=== PATIENT | male | born 1975 | race American Indian/Alaskan Native ===

== ENCOUNTER 2017-10-19 13:04 | Emergency (ER) | payer SELFPAY ==
--- NOTE | 2017-10-19 18:21 | Emergency Department Report ---
HPI - General Chief Complaint: High BP Time Seen by Provider: 10/19/17 18:01 - HPI HPI: Room 24 The patient is a 42-year-old male presented with a chief complaint of hypertension, chest tightness. The patient states she has a history of hypertension was prescribed lisinopril/hydrochlorothiazide. The patient states he only takes blood pressure medication sparingly as he is trying to make it last. 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 Coworkers told him that he nodded off for the patient believes he may have passed out because he never falls asleep at work. The patient also admits to having tightness across his chest for several months which he has attributed to a "muscle pull." The patient does not recall any specific injury lesion to his chest tightness but states every time he has had chest pain in the past he has been diagnosed with a "pulled muscle." The patient states he's never had a stress test or cardiac catheterization. Location: [See above] Duration: [See above] Quality: Tightness Severity: [See above] Modifying factors: [see above] Context: [see above] Mode of transportation: [not driving] ED Past Medical Hx - Past Medical History Hx Hypertension: Yes Hx Diabetes: Yes - Surgical History Additional Surgical History: eyes - Family History Family history: no significant - Social History Smoking Status: Never Smoker Substance Use Type: None (denies illicit drug use), Alcohol (occasional) ED Review of Systems ROS: Stated complaint: HYPERTENSIVE Other details as noted in HPI Respiratory: denies: shortness of breath Cardiovascular: chest pain Gastrointestinal: denies: nausea, vomiting Neurological: paresthesias. denies: headache Physical Exam - Physical Exam Vital Signs: Vital Signs 10/19/17 13:57 Temperature 98.9 F Pulse Rate 103 H Respiratory 18 Rate Blood Pressure 179/120 O2 Sat by Pulse 98 Oximetry Physical Exam: GENERAL: The patient is well-developed well-nourished male lying on stretcher not appearing to be in acute distress. [] HEENT: Normocephalic. Atraumatic. Extraocular motions are intact. Patient has moist mucous membranes. Strabismus NECK: Supple. Trachea midline CHEST/LUNGS: Clear to auscultation. There is no respiratory distress noted. HEART/CARDIOVASCULAR: Regular. There is no tachycardia. There is no gallop rub or murmur. ABDOMEN: Abdomen is soft, nontender. Patient has normal bowel sounds. There is no abdominal distention. SKIN: There is no rash. There is no edema. There is no diaphoresis. NEURO: The patient is awake, alert, and oriented. The patient is cooperative. The patient has no focal neurologic deficits. The patient has normal speech. Cranial nerves II through XII grossly intact, no drift MUSCULOSKELETAL: There is no evidence of acute injury. ED Course Vital Signs 10/19/17 13:57 Temperature 98.9 F Pulse Rate 103 H Respiratory 18 Rate Blood Pressure 179/120 O2 Sat by Pulse 98 Oximetry ED Medical Decision Making - Lab Data Result diagrams: 10/19/17 18:52 10/19/17 18:45 Laboratory Tests 10/19/17 10/19/17 18:45 18:52 WBC 4.9 RBC 4.92 Hgb 14.3 Hct 42.4 MCV 86 MCH 29 MCHC 34 RDW 13.7 Plt Count 232 Lymph % (Auto) 34.3 Perkins % (Auto) 5.0 Eos % (Auto) 0.8 Baso % (Auto) 0.7 Lymph # 1.7 Perkins # 0.2 Eos # 0.0 Baso # 0.0 Seg Neutrophils % 59.2 Seg Neutrophils # 2.9 Sodium 136 L Potassium 3.7 Chloride 96.4 L Carbon Dioxide 24 Anion Gap 19 BUN 13 Creatinine 1.3 Estimated GFR > 60 BUN/Creatinine Ratio 10 Glucose 350 H Calcium 9.2 Total Creatine Kinase 149 CK-MB (CK-2) 1.3 CK-MB (CK-2) Rel Index 0.8 Troponin T < 0.010 - EKG Data -: EKG Interpreted by Me EKG shows normal: sinus rhythm Rate: normal - EKG Data When compared to previous EKG there are: no significant change Interpretation: other (compared to previous EKG performed at urgent care facility dated 10/15/2017. No significant change) - Radiology Data Radiology results: report reviewed (chest x-ray, CT head), image reviewed ( chest x-ray, CT head) interpreted by me: Chest x-ray-no focal infiltrate, no pneumothorax [facility] [address] [place] [address] XRay Report Signed Patient: WEST LINK MR#: [id number] : 1975 Acct:[id number] Age/Sex: 42 / M ADM Date: 10/19/17 Loc: ED Attending Dr: Ordering Physician: TAMELA REYEZ MD Date of Service: 10/19/17 Procedure(s): XR chest 1V ap Accession Number(s): [id number] cc: TAMELA REYEZ MD Fluoro Time In Minutes: FINAL REPORT EXAM: XR CHEST 1V AP HISTORY: chest pain COMPARISON: None available. FINDINGS: Frontal view(s) of the chest obtained. Cardiac silhouette within normal limits. No gross consolidation or effusion. No pneumothorax. IMPRESSION: No grossly acute findings. Transcribed By: LMA Dictated By: FAITH MCALLISTER MD Electronically Authenticated By: FAITH MCALLISTER MD Signed Date/Time: 10/19/171848 DD/ 48 TD/TT: 10/19/171848 [place] [address] Cat Scan Report Signed Patient: WEST LINK MR#: [id number] : 1975 Acct:[id number] Age/Sex: 42 / M ADM Date: 10/19/17 Loc: ED Attending Dr: Ordering Physician: TAMELA REYEZ MD Date of Service: 10/19/17 Procedure(s): CT head/brain wo con Accession Number(s): [id number] cc: TAMELA REYEZ MD FINAL REPORT EXAM: CT HEAD/BRAIN WO CON HISTORY: hypertension, possible syncopal episode COMPARISON: None available. TECHNIQUE: Axial images obtained skull base through vertex. FINDINGS: No acute intracranial hemorrhage, midline shift or pathologic extra axial fluid collection. Ventricles and cisterns are normal in size and configuration for the patient's age. Simpson-white differentiation preserved. 5 millimeter benign perivascular space inferior right basal ganglia. Calvarium grossly intact. Ocular globes are grossly unremarkable. Mild mucosal thickening the visualized maxillary sinuses. Tiny amount of fluid within the left mastoid air cells. IMPRESSION: No grossly acute intracranial abnormality. Transcribed By: LMA Dictated By: FAITH MCALLISTER MD Electronically Authenticated By: FAITH MCALLISTER MD Signed Date/Time: 10/19/171835 DD/ 35 TD/TT: 10/19/171835 - Differential Diagnosis hypertensive urgency, ACS, ICH Critical care attestation.: If time is entered above; I have spent that time in minutes in the direct care of this critically ill patient, excluding procedure time. ED Disposition Clinical Impression: Uncontrolled hypertension, Chest tightness Disposition: OP ADMIT IP TO THIS HOSP Is pt being admited?: Yes Does the pt Need Aspirin: Yes Condition: Stable Instructions: Hypertension (ED) Referrals: PRIMARY CARE, [Primary Care Provider] - 3-5 Days Time of Disposition: 19:41 (hospitalist notified (Dr Yeboah))
[2017-10-19] MEDS ORDERED: CATAPRES ONE (18:27)
[2017-10-19] MEDS ORDERED: CATAPRES PO ONE (18:27)
--- NOTE | 2017-10-19 18:42 | Cat Scan Report ---
FINAL REPORT EXAM: CT HEAD/BRAIN WO CON HISTORY: hypertension, possible syncopal episode COMPARISON: None available. TECHNIQUE: Axial images obtained skull base through vertex. FINDINGS: No acute intracranial hemorrhage, midline shift or pathologic extra axial fluid collection. Ventricles and cisterns are normal in size and configuration for the patient's age. Simpson-white differentiation preserved. 5 millimeter benign perivascular space inferior right basal ganglia. Calvarium grossly intact. Ocular globes are grossly unremarkable. Mild mucosal thickening the visualized maxillary sinuses. Tiny amount of fluid within the left mastoid air cells. IMPRESSION: No grossly acute intracranial abnormality.
--- NOTE | 2017-10-19 18:53 | XRay Report ---
FINAL REPORT EXAM: XR CHEST 1V AP HISTORY: chest pain COMPARISON: None available. FINDINGS: Frontal view(s) of the chest obtained. Cardiac silhouette within normal limits. No gross consolidation or effusion. No pneumothorax. IMPRESSION: No grossly acute findings.
[2017-10-19 19:02] LABS: Basophils % (Auto) 0.7 % (0.0-1.8); Eosinophils % (Auto) 0.8 % (0.0-4.3); Hematocrit 42.4 % (35.5-45.6); Hemoglobin 14.3 gm/dl (11.8-15.2); Lymphocytes # (Auto) 1.7 K/mm3 (1.2-5.4); Lymphocytes % (Auto) 34.3 % (13.4-35.0); Mean Corpuscular HGB Conc 34 % (32-34); Mean Corpuscular Hemoglobin 29 pg (28-32); Mean Corpuscular Volume 86 fl (84-94); Monocytes # (Auto) 0.2 K/mm3 (0.0-0.8); Platelet Count 232 K/mm3 (140-440); Red Blood Count 4.92 M/mm3 (3.65-5.03); Red Cell Distribution Width 13.7 % (13.2-15.2)
[2017-10-19 19:37] LABS: Creatine Kinase MB 1.3 ng/mL (0.0-4.0)
[2017-10-19 19:39] LABS: BUN/Creatinine Ratio 10; Blood Urea Nitrogen 13 mg/dL (9-20); Calcium 9.2 mg/dL (8.4-10.2); Hemolysis Index 11
[2017-10-19] MEDS ORDERED: ASPIRIN PO ONE (19:41)
--- NOTE | 2017-10-19 19:50 | History and Physical Report ---
History of Present Illness Chief complaint: I ran out of my medicine History of present illness: 42 YO Male with HTN, DM, presents to ED for evaluation. Pt states that "My blood pressure is High". Pt states that he ran out of his medication, and is unable to afford his medication due to financial reasons. Pt seen and evaluated in ED and found to have elevated blood pressure and elevated serum glucose. Pt treated with supportive care with normalization of serum glucose and blood pressure. Pt medically optimized and back to usual state of health. Pt discharged home and instructed to f/u pc 5 days with blood pressure/blood glucose log. Past History Past Medical History: diabetes, hypertension Past Surgical History: Other (eye surgery) Social history: single. denies: smoking, alcohol abuse, prescription drug abuse Family history: diabetes, hypertension Medications and Allergies Allergies Allergy/AdvReac Type Severity Reaction Status Date / Time No Known Allergies Allergy Unverified 10/19/17 13:57 Home Medications Medication Instructions Recorded Confirmed Last Taken Type Insulin NPH/Regular [Novolin 70/30] 12 unit SQ QDDIAB #1 vial 10/19/17 Unknown Rx Lisinopril [Prinivil] 10 mg PO DAILY #30 tablet 10/19/17 Unknown Rx Syring W-Ndl,Disp,Insul,0.5 ml 1 each MC BID #1 box 10/19/17 Unknown Rx [Ultra Comfort] amLODIPine [Norvasc] 10 mg PO DAILY #30 tab 10/19/17 Unknown Rx Review of Systems Constitutional: no weight loss, no weight gain, no fever, no chills, no sweats Ears, nose, mouth and throat: no ear pain, no ear discharge, no tinnitis, no decreased hearing, no nose pain, no nasal congestion, no nasal discharge, no sinus pressure Cardiovascular: no chest pain, no orthopnea, no palpitations, no rapid/ irregular heart beat, no edema, no syncope, no lightheadedness, no shortness of breath Respiratory: no cough, no cough with sputum, no excessive sputum, no hemoptysis Gastrointestinal: no abdominal pain, no nausea, no vomiting, no diarrhea, no constipation, no change in bowel habits Genitourinary Male: no dysuria, no hematuria, no flank pain, no discharge, no urinary frequency, no urinary hesitancy, no nocturia, no incontinence, no erectile dysfunction Rectal: no pain, no incontinence, no bleeding Musculoskeletal: no neck stiffness, no neck pain, no shooting arm pain, no arm numbness/tingling, no shooting leg pain, no morning stiffness, no muscle weakness, no myalgias Integumentary: no rash, no pruritis, no redness, no sores, no wounds, no bullae , no lesions, no acne, no dryness, no color changes Neurological: no head injury, no transient paralysis, no paralysis, no weakness , no parathesias, no numbness, no vertigo, no headaches, no migraines, no convulsions, no aphasia Psychiatric: no anxiety, no memory loss, no change in sleep habits, no change in appetite, no change in libido, no suicidal ideation, no disorientation, no paranoia, no depression, no hopelessness Endocrine: no cold intolerance, no heat intolerance, no polyphagia, no excessive thirst, no polydipsia, no polyuria, no nocturia, no excessive sweating , no flushing, no increase in ring/shoe/hat size, no proptosis, no thyroid mass Hematologic/Lymphatic: no easy bruising, no easy bleeding, no lymphadenopathy, no lymphedema Allergic/Immunologic: no urticaria, no allergic rhinitis, no wheezing, no persistent infections, no anaphylaxis, no angioedema Exam - Constitutional Vitals: Temp Pulse Resp BP Pulse Ox 98.9 F 86 16 176/126 97 10/19/17 13:57 10/19/17 18:15 10/19/17 17:45 10/19/17 18:30 10/19/17 18:15 General appearance: Present: no acute distress, well-nourished - EENT Eyes: Present: PERRL ENT: hearing intact, clear oral mucosa - Neck Neck: Present: supple, normal ROM - Respiratory Respiratory effort: normal Respiratory: bilateral: CTA - Cardiovascular Heart Sounds: Present: S1 & S2. Absent: rub, click - Extremities Extremities: pulses symmetrical, No edema Peripheral Pulses: within normal limits - Abdominal General gastrointestinal: Present: soft, non-tender, non-distended, normal bowel sounds Male genitourinary: Present: normal - Integumentary Integumentary: Present: clear, warm, dry - Musculoskeletal Musculoskeletal: gait normal, strength equal bilaterally - Psychiatric Psychiatric: appropriate mood/affect, intact judgment & insight - Neurologic Neurologic: CNII-XII intact, moves all extremities Results - Labs CBC & Chem 7: 10/19/17 18:52 10/19/17 18:45 Labs: Abnormal lab results 10/19/17 Range/Units 18:45 Sodium 136 L (137-145) mmol/L Chloride 96.4 L (98-107) mmol/L Glucose 350 H (75-100) mg/dL Assessment and Plan - Patient Problems (1) Diabetes Current Visit: Yes Status: Acute Plan to address problem: Insulin IV, restart novolin 70/30, ADA diet, (2) Uncontrolled hypertension Current Visit: Yes Status: Acute Plan to address problem: IV hydralazine, restart lisinopril, and amlodipine. Resume prehospital medication, f/u pcp 5 days, (3) Noncompliance Current Visit: Yes Status: Acute Plan to address problem: Pt counseled,
[2017-10-19] MEDS ORDERED: APRESOLINE IV ONE (20:00)
[2017-10-19] MEDS ORDERED: HumuLIN R ONE (20:55)
[2017-10-19] MEDS ORDERED: ZESTRIL PO ONE (21:00)
[2017-10-19 22:45] VITALS: BP 139/83
== END 2017-10-19 22:40 | disposition admitted as inpatient to this hospital (09) ==
LOC: ED 13:04
DX: I10 Essential (primary) hypertension (principal); R07.89 Other chest pain; E11.9 Type 2 diabetes mellitus without complications
CPT/HCPCS: 36415; 70450; 71045; 80048; 82550; 82553; 82962; 84484; 85025; 93005; 93010; 96372; 96374; 99284; J0360; J1815